=== PATIENT | male | born 1965 | race Caucasian/White ===

== ENCOUNTER 2019-05-24 15:01 | Emergency (ER) | payer OTHER, SELFPAY ==
[2019-05-24 15:14] VITALS: BP 132/93; PULSE 131; RESP 16; TEMP 39.4; O2SAT 96
--- NOTE | 2019-05-24 15:26 | ED.URI ---
HPI - URI/Sore Throat General Chief Complaint: Upper Respiratory Infection Stated Complaint: Sore Throat Time Seen by Provider: 05/24/19 15:26 Source: patient and RN notes reviewed Mode of arrival: ambulatory Limitations: no limitations History of Present Illness HPI Narrative: 54 year old male who presents to express care with complaints of feeling weak and having cough which started last night, has had fevers chills and sweats and body aches. Patient is concerned he may have strep since coworker just diagnosed on Tuesday with strep throat. Patient states some nasal drainage and congestion, some soreness to throat,cough and chest congestion. Patient states that cough is nonproductive at this time, denies any shortness of breath or dyspnea with exertion, no tachypea or accessory muscle use noted SAO2 96% on room air. Patient admits to long history of tobacco abuse. MD elicited complaint: fever, cough, sore throat, rhinorrhea and nasal congestion Pertinent past history: other (tobacco abuse) Onset (ago): day(s) (1) Consistency: progressively worsening Severity: moderate Description of mucous: clear Able to tolerate fluids by mouth: Yes Exacerbating factors: exertion and deep breaths Relieving factors: nothing Context: sick contacts (coworker has strep) Associated symptoms: fever, chills, myalgias, rhinorrhea, nasal congestion and cough Treatments prior to arrival: acetaminophen Related Data Home Medications Medication Instructions Recorded Confirmed omeprazole 20 mg PO DAILY 05/24/19 05/24/19 sildenafil 05/24/19 Allergies Allergy/AdvReac Type Severity Reaction Status Date / Time No Known Allergies Allergy Unverified 05/24/19 15:19 Review of Systems Review of Systems: Narrative: CONSTITUTIONAL: Positive fever, chills, or sweats. EYES: Denies visual changes, redness, or discharge. ENT:Positive rhinorrhea, congestion, sore throat, no otalgia. CARDIOVASCULAR: Denies chest pain, palpitations, or edema. RESPIRATORY:positive cough denies dyspnea. GASTROINTESTINAL: Denies abdominal pain, nausea, vomiting, or diarrhea. GENITOURINARY: Denies dysuria or hematuria. SKIN: Denies rash or itching. MUSCULOSKELETAL: Denies back pain, joint pain, positive for feeling weak and having body aches NEUROLOGIC: Denies headache, numbness, or weakness. PSYCHIATRIC: Denies anxiety or depression. All systems reviewed & are unremarkable except as noted in HPI and below PMFSH Past Medical History Medical History (Updated 05/31/19 @ 14:36 by Pat Sanchez NP) Fracture closed, clavicle, shaft GERD (gastroesophageal reflux disease) Hypertension Kidney stone Surgical History Surgical History (Updated 05/31/19 @ 14:35 by Pat Sanchez NP) H/O skin graft Hx of vasectomy Family History Family History Mother Hypertension Sibling Hypertension Social History Social History (Updated 05/31/19 @ 14:37 by Pat Sanchez NP) Smoking packs per day: 1 Smoking cigarettes per day: 20.0 Years smoked: 30 Smoking pack-years: 30.00 Smoking status: Current every day smoker Second hand tobacco smoke exposure: Yes Alcohol intake: current Living arrangements: with family Gender identity (if verbalized by the patient): Male Comments At time of signature, agree with nursing past medical, social history. There is no relevant family history pertinent to the presenting complaint Exam Narrative: Exam Narrative: GENERAL: Ill-appearing, well-nourished, and in no acute distress. HEAD: Normocephalic, atraumatic. EYES: PERRLA and EOMI. ENT: Nares red, clear rhinorrhea no epistaxis. Mucous membranes moist.TM's normal with good light reflex,throat light red, no lesions or exudate tonsils enlarged NECK: Supple.No Lymphadenopathy CHEST: Clear to auscultation. No respiratory distress.cough SAO2 96% on room air HEART: Regular rate and rhythm. No murmur heard. Normal peripheral
== END 2019-05-24 15:46 | disposition home or self-care (01) ==
PROVIDERS: Emergency Provider Registered Nurse; PCP Internal Medicine
DX: J10.1 Influenza due to other identified influenza virus with other respiratory manifestations (principal); R05 Cough; I10 Essential (primary) hypertension
CPT/HCPCS: 87081; 87804; 87880; 99213; G0463

== ENCOUNTER → 2021-09-12 08:14 | Outpatient (CLI) | payer OTHER, SELFPAY ==
--- NOTE | ~2021-09-12 | XR_ITS ---
EXAMINATION: XR chest 2V 09/12/2021 08:30 INDICATION: Exposure to asbestos PROCEDURE: 2 view chest COMPARISON: 03/05/2013 FINDINGS: The lungs are clear. The cardiomediastinal silhouette is within normal limits. There are no pleural effusions. There is no pneumothorax suspected. IMPRESSION: 1: NO ACUTE CARDIOPULMONARY DISEASE. Reviewed, dictated and finalized at location A.
== END ==
PROVIDERS: PCP Internal Medicine; Visit Provider Internal Medicine
DX: Z77.090 Contact with and (suspected) exposure to asbestos (principal)
CPT/HCPCS: 71046

== ENCOUNTER 2022-10-21 13:49 | Outpatient (CLI) | payer OTHER, SELFPAY ==
--- NOTE | ~2022-10-21 | CT_ITS ---
CT Scan of the Chest without Contrast: Clinical Indication: Lung cancer screening, smoking history Technique: Contiguous sections were acquired throughout the chest without intravenous contrast. Dose reduction technique was used on this scan by utilizing automated exposure control and iterative recon struction technique. The dose-length product (DLP) was 208.70 mGy-cm. COMPARISON: Abdominopelvic CT dated 04/30/2014 Findings: There is no evidence of any significant mediastinal, hilar or axillary lymphadenopathy. The mediastin al soft tissues appear normal. There is no evidence of pleural or pericardial effusion. Calcified anteromedial right upper lobe granuloma is noted. No additional pulmonary nodule seen.. Images through the upper abdomen reveal stable peripherally calcified lesion in the spleen measuring 3.3 cm in diameter. 3 mm nonobstructing left renal stone noted. Impression: Lung RADS 2: Benign appearance. 12 month follow-up screening CT advised. 3 mm left renal stone. Reviewed, dictated and finalized at [facility]. Impression: Lung RADS 2: Benign appearance. 12 month follow-up screening CT advised. 3 mm left renal stone.
== END 2022-10-21 13:50 | disposition home or self-care (01) ==
PROVIDERS: PCP Internal Medicine; Visit Provider Internal Medicine
DX: Z12.2 Encounter for screening for malignant neoplasm of respiratory organs (principal); Z87.891 Personal history of nicotine dependence; N20.0 Calculus of kidney
CPT/HCPCS: 71271

== ENCOUNTER 2023-03-03 01:18 | Day surgery (SDC) | payer OTHER, SELFPAY ==
[2023-02-16 10:12] VITALS: BMI 31.0
--- NOTE | 2023-03-01 12:44 | SUR.PREOP ---
Patient called regarding upcoming procedure. Reviewed preop instructions, appointment times, and procedure prep.
[2023-03-03 12:11] VITALS: BP 137/85; PULSE 92; RESP 18; TEMP 36.9; O2SAT 92; BMI 30.9
[2023-03-03] MEDS: LACTATED RINGERS 1,000 ML 150 ML IV CONT (12:30)
--- NOTE | 2023-03-03 12:34 | PM.HPGS ---
History of Present Illness History of Present Illness Consent: Risks, benefits, and alternatives have been discussed and questions answered. Patient agrees to proceed with procedure. Chief complaint: HX colon polyps, FA HX colon polyps, dysphagia Narrative: Juan Lobato is a 57 year old male Presents for screening colonoscopy and EGD. Patient's family history is significant for colon polyps. Patient had a benign hyperplastic colon polyp in 2018. He reports his current weight appetite bowel movements are normal. Patient also has complaints of dysphagia. When eating large pieces of food such as meat he feels as though it catches in the mid substernal portion the chest. It has difficulty passing through this area. His referred for EGD for possible esophageal narrowing. Patient notes only infrequent heartburn. He takes Tums perhaps 1 time a week. Review of Systems Review of Systems: Review of systems noncontributory. [facility] Past Medical History Medical History Fracture closed, clavicle, shaft GERD (gastroesophageal reflux disease) Hypertension Kidney stone Surgical History Surgical History H/O skin graft Hx of vasectomy Family History Family History Mother Hypertension Sibling Hypertension Social History Social History Smoking packs per day: 1 Smoking cigarettes per day: 20.0 Years smoked: 30 Smoking pack-years: 30.00 Smoking status: Current every day smoker Tobacco type: cigarettes Second hand tobacco smoke exposure: Yes Alcohol intake: current Alcohol use details: light drinking on social occasions Substance use: never Substance use type: does not use Lack of Transportation: No Lack of Food: Never True Current Housing: I Have Housing Concerned About Future Housing: No Difficulty Paying Gas/Electric Bills: No Difficulty Paying for Meds: No Currently Unemployed: No Education: High School Diploma/GED Difficulty w/ Childcare or Family Care: No Living arrangements: with family Gender identity (if verbalized by the patient): Male Spiritual care concerns: No Meds Home Medications and Allergies Home Medications Medication Instructions Recorded Confirmed Type ascorbic acid (vitamin C) 500 mg 500 mg PO DAILY 06/13/19 02/16/23 History tablet multivitamin (Multiple Vitamins 1 tablet PO DAILY 06/13/19 02/16/23 History tablet) sildenafil 100 mg tablet (Viagra) 100 mg PO DAILY PRN sexual 03/30/21 02/16/23 Rx activity #24 tabs lisinopril 20 mg tablet 20 mg PO DAILY #90 tabs 06/25/22 02/16/23 Rx tamsulosin 0.4 mg capsule 0.4 mg PO DAILY #90 caps 01/13/23 02/16/23 Rx Allergies Allergy/AdvReac Type Severity Reaction Status Date / Time No Known Allergies Allergy Verified 02/16/23 10:20 Vital Signs Vital Signs - 24 hr 03/03/23 12:11 Temperature 98.4 F Pulse Rate 92 Respiratory Rate 18 Blood Pressure 137/85 Pulse Oximetry 92 Oxygen Delivery Room Air Exam Narrative: Physical exam reveals patient to be alert. Vital signs stable. HEENT exam is unremarkable. Patient is anicteric. Lungs are clear to auscultation and percussion. Heart is without murmur or extra sounds. The abdomen bowel sounds are present soft nontender with no organomegaly. Digital external rectal exam normal. Assessment and Plan Assessment and plan (1) Dysphagia: Code(s): R13.10 - Dysphagia, unspecified Status: Acute Assessment and Plan: Patient reports difficulty swallowing larger pieces of food suspicious for esophageal narrowing. Plan for EGD to assess more thoroughly. He may have underlying acid reflux. Further recommendations may be given after endoscopy. (2) Encounter for screening colonoscopy: Code(
--- NOTE | 2023-03-03 12:55 | SUR.PREOP ---
Patient and family notified of delay in procedure time.
--- NOTE | 2023-03-03 13:07 | WPDANESEPPF ---
Anes - Initial Pre Proc Eval Procedure: Operation Date: 03/03/23 13:30 Proposed Procedures p Esophagogastroduodenoscopy & Colonoscopy - Krystian Machado MD Date/Time: 03/03/23 13:07 Surgeon: Krystian Machado MD Pre Op Diagnosis: HX colon polyps, FA HX colon polyps, dysphagia Patient Data Age: 57 Gender: M Height: 1.75 m Weight: 95.1 kg Last Vital Signs Temp 98.4 F 03/03/23 12:11 Pulse 92 03/03/23 12:11 Resp 18 03/03/23 12:11 BP 137/85 03/03/23 12:11 Pulse Ox 92 03/03/23 12:11 O2 Del Method Room Air 03/03/23 12:11 Allergies Allergy/AdvReac Type Severity Reaction Status Date / Time No Known Allergies Allergy Verified 02/16/23 10:20 Home Medications Medication Instructions Recorded Confirmed Type ascorbic acid (vitamin C) 500 mg 500 mg PO DAILY 06/13/19 02/16/23 History tablet multivitamin (Multiple Vitamins 1 tablet PO DAILY 06/13/19 02/16/23 History tablet) sildenafil 100 mg tablet (Viagra) 100 mg PO DAILY PRN sexual 03/30/21 02/16/23 Rx activity #24 tabs lisinopril 20 mg tablet 20 mg PO DAILY #90 tabs 06/25/22 02/16/23 Rx tamsulosin 0.4 mg capsule 0.4 mg PO DAILY #90 caps 01/13/23 02/16/23 Rx Patient hx anesthesia problems: none Family hx anesthesia problems: none Results Review: All pre-operative results and documents have been reviewed as part of the pre-operative evaluation. [facility] Past Medical History Medical History Fracture closed, clavicle, shaft GERD (gastroesophageal reflux disease) Hypertension Kidney stone Surgical History Surgical History H/O skin graft Hx of vasectomy Family History Family History Mother Hypertension Sibling Hypertension Social History Social History Smoking packs per day: 1 Smoking cigarettes per day: 20.0 Years smoked: 30 Smoking pack-years: 30.00 Smoking status: Current every day smoker Tobacco type: cigarettes Second hand tobacco smoke exposure: Yes Alcohol intake: current Alcohol use details: light drinking on social occasions Substance use: never Substance use type: does not use Lack of Transportation: No Lack of Food: Never True Current Housing: I Have Housing Concerned About Future Housing: No Difficulty Paying Gas/Electric Bills: No Difficulty Paying for Meds: No Currently Unemployed: No Education: High School Diploma/GED Difficulty w/ Childcare or Family Care: No Living arrangements: with family Gender identity (if verbalized by the patient): Male Spiritual care concerns: No Anes - Eval Final PreProcedure Day of Procedure 03/03/23 13:07 Patient weight: obese Heart: regular rate and rhythm Lungs: clear to auscultation Airway: Mallampati scale class II Neurological: alert and oriented Last oral intake: >/= 8 hours ASA classification: II Emergent: no Anesthetic plan: proceed Anesthesia type and monitoring: general GIVS and standard monitoring Results Review: All pre-operative results and documents have been reviewed as part of the pre-operative evaluation. Informed Consent: The patient's anesthetic plan and its attendant risks and benefits were discussed with the patient/family/POA. Questions were solicited and answers provided to the satisfaction of the patient/family/POA.
--- NOTE | 2023-03-03 14:15 | SUR.OPER ---
egd ended at 1408 and colonoscopy started at 1414
[2023-03-03 14:27] VITALS: BP 119/77; PULSE 90; RESP 15; O2SAT 99
[2023-03-03 14:37] VITALS: BP 123/90; PULSE 97; RESP 21; O2SAT 100
[2023-03-03 14:47] VITALS: BP 122/97; PULSE 85; RESP 17; O2SAT 100
== END 2023-03-03 14:59 | disposition home or self-care (01) ==
PROVIDERS: PCP Internal Medicine; Visit Provider Internal Medicine Gastroenterology
PROC: 0DJ08ZZ Inspection of Upper Intestinal Tract, Via Natural or Artificial Opening Endoscopic (ICD-10-PCS; CPT 43235; principal; 2023-03-03 13:30)
DX: Z12.11 Encounter for screening for malignant neoplasm of colon (principal); K64.8 Other hemorrhoids; R13.10 Dysphagia, unspecified; I10 Essential (primary) hypertension; K21.9 Gastro-esophageal reflux disease without esophagitis; Z86.010 Personal history of colon polyps; Z83.719 Family history of colon polyps, unspecified; F17.210 Nicotine dependence, cigarettes, uncomplicated; E66.9 Obesity, unspecified; Z68.31 Body mass index [BMI] 31.0-31.9, adult
CPT/HCPCS: 45378; 43450; 43235; J2704; J7120